=== PATIENT | female | born 1990 | race Caucasian/White ===

== ENCOUNTER 2025-07-14 14:06 | Emergency (ER) | payer OTHER, SELFPAY ==
[2025-07-14 14:18] VITALS: BP 111/58; PULSE 83; RESP 18; TEMP 36.4; O2SAT 100
--- NOTE | 2025-07-14 14:32 | ED.HA ---
HPI - Headache General Chief Complaint: Headache Stated Complaint: Head Pain Time Seen by Provider: 07/14/25 14:10 Source: patient Mode of arrival: ambulatory Limitations: no limitations History of Present Illness HPI Narrative: patient is a 35-year-old female who presents with headache has started at 11:30 a.m. this morning. Patient has not taken anything for symptoms. Patient states the worst headache she has ever had. States she is having left eye vision changes and right-sided headache. Denies any numbness, tingling or weakness. Patient states when she was she was diagnosed with vestibular migraines and this was seen neurologist next week. Patient did not call neurologist or PCP today. Related Data Home Medications ?Medication ?Instructions ?Recorded ?Confirmed ?Last Taken ?Type No Home Medications 07/14/25 07/14/25 Unknown History Allergies Allergy/AdvReac Type Severity Reaction Status Date / Time Sulfa (Sulfonamide AdvReac Intermediate Nausea and Verified 07/14/25 14:30 Antibiotics) Vomiting Review of Systems Review of Systems: All systems reviewed & are unremarkable except as noted in HPI and below Constitutional: Constitutional: Denies body ache(s), Denies chills, Denies fatigue, Denies fever(s), Reports headache(s), Denies malaise and Denies weakness Eyes: Eyes: Reports blurry vision, Denies irritation and Denies loss of vision ENT: Denies otalgia, Reports headache(s), Denies nasal discharge, Denies sinus pain and Denies sore throat Cardiovascular: Cardiovascular: Denies chest pain, Denies irregular heart rhythm and Denies dyspnea Respiratory: Respiratory: Denies dyspnea Gastrointestinal: Gastrointestinal: Denies abdominal pain, Denies melena, Denies hematochezia, Denies diarrhea, Denies nausea and Denies vomiting Musculoskeletal: Musculoskeletal: Denies back pain, Denies myalgias and Denies arthralgias Integumentary/Breasts: Skin/Breast: Denies pruritus and Denies rash Neurologic: Reports headache(s), Denies loss of vision and Denies weakness Psychiatric: Psychiatric: Reports no additional psychiatric complaints Endocrine: Endocrine: Denies fatigue PMFSH Comments At time of signature, agree with nursing past medical, surgical, social and family history. There is no relevant family history pertinent to the presenting complaint. Exam Const: General: cooperative, healthy appearing, comfortable, no acute distress and well nourished Nutritional Appearance: well nourished Orientation/consciousness: patient oriented x3 Limitations: no limitations HENMT: Head: normal to inspection, normocephalic and atraumatic Ears: hearing grossly normal bilaterally and external ears normal Face/Nose/Sinus: Normal external nose present, normal facial exam and face symmetric Face and sinus: normal facial exam and face symmetric Mouth: Yes lip normal Eyes: General: appearance normal, both eyes and all related structures Alignment and Position: alignment normal and position normal Periorbital: periorbital findings normal Eyelids: eyelids normal Pupils: Equal, round and reactive pupils present EOM: EOMs intact bilaterally Neck: Neck: normal visual inspection, full ROM and supple Chest: Chest palpation & inspection: normal inspection of the chest Resp: Effort & Inspection: normal respiratory effort and able to speak in complete sentences Auscultation: clear to auscultation bilaterally Cardio: Rate: regular rate Rhythm: regular rhythm Heart sounds: S1 normal heart sound present and S2 normal heart sound present GI: Inspection: normal to inspection Skin: General skin exam: normal color and no rashes or lesions noted Neuro: General: patient oriented x3 and moves all extremities Cranial nerves: Yes Equal, round and reactive pupils present Cognition (Neuro): normal cognition Speech: normal speech Gait exam (Neuro): Normal gait present Motor exam (neuro): 5/5 motor strength present throughout Sensory Exam: normal sensation Extrem: General: normal to inspection, full ROM and no edema Psych: Appearance: grossly normal and well kempt Mental Status: mental status grossly normal Speech and movement: Normal speech and movement present Affect: normal affect Attitude: cooperative Thought process: Normal thought process present Course Course Emergency Course: Patient being transferred to [facility] for further evaluation and treatment. Patient needs advanced imaging, labs and potentially a migraine cocktail. Portions of this record may have been created with voice recognition software Level of Care: Express Care Visit Vital Signs Vital signs: Vital Signs Temperature 36.4 C 07/14/25 14:18 Pulse Rate 83 07/14/25 14:18 Respiratory Rate 18 07/14/25 14:18 Blood Pressure 111/58 L 07/14/25 14:18 Pulse Oximetry 100 07/14/25 14:18 Oxygen Delivery Room Air 07/14/25 14:18 Temperature 36.4 C 07/14/25 14:18 Pulse Rate 83 07/14/25 14:18 Respiratory Rate 18 07/14/25 14:18 Blood Pressure 111/58 L 07/14/25 14:18 Pulse Oximetry 100 07/14/25 14:18 Oxygen Delivery Room Air 07/14/25 14:18 Reviewed Transfer Transfered to: [facility] Transportation: Other ( Private auto) Transfer rationale: Patient being transferred to [facility] for further evaluation and treatment. Patient needs advanced imaging, labs and potentially a migraine cocktail. Accepting physician: Valerie VILLANUEVA - Headache MDM Narrative Medical decision making narrative: Patient being transferred to [facility] for further evaluation and treatment. Patient needs advanced imaging, labs and potentially a migraine cocktail. Differential Diagnosis Differential diagnosis: Likely migraine, tension headache, subarachnoid hemorrhage and headache Discharge Plan Discharge Clinical Impression: Headache, Alteration in vision Patient Disposition: Acute Care Hospital Condition: Stable Patient Language: Persian Prescriptions: No Action No Home Medications Follow-up/Referrals: Aleks,KATHY Beatty Jr. [Primary Care Provider, Unknown]
--- OUTSIDE RECORDS SUMMARY | 2025-07-14 17:13 | XMS_ITS | Encounter Summary ---
Author Organization [facility] Healthcare Address [address] [place] [address] Care Team Providers Care Dial Painter Name Role Phone KATHY Fink Jr., Rogerio Wiley Primary Care Provide r Landon Julio MD Unavailable [phone] Reason for Visit * Reason Comments Headache Encounter Details Date Type Department Care Team (Late st Contact Info) Description 07/14/2025 5:13 PM [facility] - 07/14/2025 7:06 PM [facility] Emergency [facility] Emergency Department [address] [place] [address] Nonintractable episodic headache, unspecified headache type (Primary Dx) Discharge Disposition: Discharge to home or self care Social History Tobacco Use Types Packs/Day Years Used Date Smoking Tobacco: Never Smokeless Tobacco: Never Alcohol Use Standard Drinks/Week Comments Never 0 (1 standard drink = 0.6 oz pur e alcohol) AUDIT-C Answer Date Recorded Frequency of Alcohol Consumption Never 12/24/2018 Average Number of Drinks Not on file 019 Frequency of Binge Drinking Not on file 11/27 PHQ-2 Answer Date Recorded PHQ-2 Total Score (If total score is 3 or more points, staff should administer the PHQ-9) 0 11/16/2022 [place] Depression Scale Answer Date Recorded [place] Depression Scale Total 0 12/01/2019 The thought of harming myself has occurred to me . Never 12/01/2019 Personal Safety Answer Date Recorded Have you ever been in or are you currently in a harmful physical or emotional relationship or is someone making you feel afraid or unsafe? Denies 07/14/2025 Comments Unknown Sex and Gender Information Value Date Recorded Sex Assigned at Not on file Legal Sex Female 9:17 PM [facility] Gender Identity Not on file Sexual Orientation Not on file documented as of this encounter Last Filed Vital Signs Vital Sign Reading Time Taken Comments Blood Pressure 103/88 07/14/2025 6:40 PM [facility] Pulse 80 07/14/2025 6:40 PM [facility] Temperature 36.1 C (97 F) 07/14/2025 3:18 PM [facility] Respiratory Rate 18 07/14/2025 6:40 PM [facility] Oxygen Saturation 98% 07/14/2025 6:40 PM [facility] Inhaled Oxygen Concentration - - Weight 65.1 kg (143 lb 8.3 oz) 07/14/2025 3:18 P M [facility] Height 162.6 cm (5' 4) 07/14/2025 3:18 PM [facility] Body Mass Index 24.64 07/14/2025 3:18 PM [facility] documented in this encounter Functional Status * Question Answer Date of Assessment Author MAP (mmHg) 96 07/14/2025 6:40 PM [facility] Tessa Gamez RN * Question Answer Date of Assessment Author Is the patient being treated today because it is known or suspected that they prepared, started, or tried to end their life? No 07/14/2025 3:16 PM [facility] Christina White RN * Question Answer Date of Assessment Author 1. In the past month, have y ou wished you were or that you could go to sleep and not wake up? No 07/14/2025 3:16 PM [facility] Christina Gudino RN 2. In the past month, have y ou actually had any thoughts of killing yourself? No 07/14/2025 3:16 PM [facility] Christina White, R N 6. Have you ever done anythi ng, started to do anything, or prepared to do anything to end your life? No 07/14/2025 3:16 PM [facility] Christina Bryant RN * Suicide Risk Level Answer Date of Assessment Author No risk level 07/14/2025 3:16 PM [facility] Tracey White ra, RN * Fall Risk Assessment Tool - MEDFRAT Question Answer Date of Assessment Author Prior Fall Event (Autopopula ivelisse from EMR) None found 07/14/2025 3:19 PM [facility] Christina White, R N History of falling in last 3 months, including since admission 0 07/14/2025 3:19 PM [facility] Christina White R N Confusion or disorientation 0 07/14/2025 3: 19 PM Christina Rosado RN Intoxicated or sedated 0 07/14/2025 3:19 PM Christina Rosado RN Impaired gait 0 07/14/2025 3:19 PM [facility] Christina Bryant RN Mobility assist device used 0 07/14/2025 3: 19 PM Christina Rosado RN Altered elimination 0 07/14/2025 3:19 PM CS T Christina White RN Fall risk score: (1-2 low ri sk), (3-4 moderate risk), (5 or more high risk) 0 07/14/2025 3:19 PM Christina Rosado R N documented as of this encounter Discharge Instructions * Discharge Instructions* Gabriella Avila NP - 07/14/2025 6:56 PM [facility] Thank you for allowing us to take care of you. Please follow up with your primary care physician orspecialist, as soon as possible, and ideally within 7 days. Please take any new medications as prescribed. Please return to the emergency department for worsening of your symptoms or any new problemswhich may arise. It is mandatory that you follow up, as recommended, with a primary care physician or specialist, per your discharge paperwork.You have received emergency care only at your visit today, an this is nota substitute for ongoing care, further evaluation, or treatment. Therefore, follow-up as directed is not optional, but mandatory. This ensures that any incidental abnormal radiographic and laboratoryfindings are evaluated appropriately. Return immediately for any new symptoms, worsening of symptoms, or persistent symptoms. We are open19/03 and will take care of you. [facility] * Attachments The following attachments cannot be sent through Care Everywhere. * General Headache (AfterCare(R) Instructions(ER/ED)) ([place]) * Migraine Headache (AfterCare(R) Instructions(ER/ED)) ([place]) documented in this encounter Medications at Time of Discharge acetaminophen (TYLENOL) 500 mg tablet Take 1 tablet (500 mg total) by mouth every 6 (six) hours as needed for pain 30 tablet 07/14/2025 clobetasoL (TEMOVATE) 0.05 % creamIndications:Chas pic Dermatitis Apply topically 2 (two) times a day 30 g 3 06/08/2021 cyproheptadine (PERIACTIN) 4 mg tablet Take 1 tablet (4 mg total) by mouth nightly 30 tablet 2 08/29/2024 ibuprofen (ADVIL,MOTRIN) 800 mg tablet Take 1 tablet (800 mg total) by mouth 3 (three) times a day 21 tablet 07/14/2025 meclizine (ANTIVERT) 25 mg tablet Take 1 tablet (25 mg total) by mouth 3 (three) times a day as needed for dizziness 30 tablet 09/05/2024 metoclopramide (REGLAN) 10 mg tablet Take 1 tablet (10 mg total) by mouth every 6 (six) hours as needed (headache or nausea) 30 tablet 2 08/29/2024 ondansetron ODT (ZOFRAN-ODT) 4 mg disintegrating tablet Dissolve 1 tablet for mild to moderate nausea or vomiting or 2 tablets for severe nausea or vomiting oral twice a day as needed. 10 tablet 07/14/2025 oxyCODONE (ROXICODONE) 5 mg immediate release tabletIndications:Pa in Take 1 tablet (5 mg total) by mouth every 4 (four) hours as needed (headache) 20 tablet 08/29/2024 ruxolitinib (Opzelura) 1.5 % cream Apply topically 2 (two) times a day triamcinolone (KENALOG) 0.1 % ointment Apply thin layer to the external vulva BID x 7-10 days. 30 g 02/25/2024 documented as of this encounter Ordered Prescriptions Prescription Sig Dispense Quantity Refills Last Filled Start Date End Date ondansetron ODT (ZOFRAN-ODT) 4 mg disintegrating tablet Dissolve 1 tablet for mild to moderate nausea or vomiting or 2 tablets for severe nausea or vomiting oral twice a day as needed. 10 tablet 07/14/2025 acetaminophen (TYLENOL) 500 mg tablet Take 1 tablet (500 mg total) by mouth every 6 (six) hours as needed for pain 30 tablet 07/14/2025 ibuprofen (ADVIL,MOTRIN) 800 mg tablet Take 1 tablet (800 mg total) by mouth 3 (three) times a day 21 tablet 07/14/2025 documented in this encounter Discharge Disposition Disposition Code Departure Means Destination Comment s Discharge to home or self care documented in this encounter ED Notes * Gabriella Avila, NICKI - 07/14/2025 5:34 PM CST HPI Chief Complaint Patient presents with Headache CHIEF COMPLAINT: Patient presents with: Headache HPI 5:37 PM Bel Kaiser is a 35 y.o. female presenting to the ED c/o a worsening headache today. She reports she has had headaches in the past, she actually has an appointment next week with a neurologist. She reports today was just different. The pain started with some visual changes in her left eye, she then noted pain in the back of her right-sided neck that moved into the right side of her head. She did present to urgent care but they felt she needed to be seen in the ER where she could geta head CT. She denies fevers or recent illness, no head injury, no vomiting however endorses nausea, no syncopal episodes, no chest pain or shortness of breath, no light-headedness or dizziness. She has no other complaints expressed at this time. History provided by patient PCP: Rogerio Fink Jr., PA PAST MEDICAL HISTORY No past medical history on file. PAST SURGICAL HISTORY Past Surgical History: No date: TONSILECTOMY, ADENOIDECTOMY, BILATERAL MYRINGOTOMY AND TUBES FAMILY HISTORY Review of patient's family history indicates: Problem: No Known Problems Relation: Father Age of Onset: (Not Specified) Problem: Breast cancer Relation: Mother Age of Onset: (Not Specified) Problem: Depression Relation: Mother Age of Onset: (Not Specified) Problem: Ovarian cancer Relation: Neg Hx Age of Onset: (Not Specified) Problem: Uterine cancer Relation: Neg Hx Age of Onset: (Not Specified) MEDICATIONS GIVEN IN THE ED Medications sodium chloride 0.9% bolus 1,000 mL (1,000 mL intravenous New Bag 07/14/25 9859) ketorolac (TORADOL) 30 mg/mL injection 15 mg (15 mg intravenous Given 07/14/25 1733) diphenhydrAMINE (BENADRYL) 50 mg/mL injection 25 mg (25 mg intravenous Given 07/14/25 173) metoclopramide (REGLAN) 5 mg/mL injection 10 mg (10 mg intravenous Given 07/14/25 173) CURRENT HOME MEDICATIONS Current Facility-Administered Medications: ?? sodium chloride 0.9% bolus 1,000 mL, 1,000 mL, intravenous, Once, Natalia Rooney PA, Last Rate: 999 mL/hr at 07/14/251731, 1,000 mL at 07/14/251731 Current Outpatient Medications: ?? clobetasoL (TEMOVATE) 0.05 % cream, Apply topically 2 (two) times a day, Disp: 30 g, Rfl: 3?? cyproheptadine (PERIACTIN) 4 mg tablet, Take 1 tablet (4 mg total) by mouth nightly, Disp: 30 tablet, Rfl: 2?? meclizine (ANTIVERT) 25 mg tablet, Take 1 tablet (25 mg total) by mouth 3 (three) times a day as needed for dizziness, Disp: 30 tablet, Rfl: 0?? metoclopramide(REGLAN) 10 mg tablet, Take 1 tablet (10 mg total) by mouth every 6 (six) hours as needed (headacheor nausea), Disp: 30 tablet, Rfl: 2?? oxyCODONE (ROXICODONE) 5 mg immediate release tablet, Take 1 tablet (5 mg total) by mouth every 4 (four) hours as needed (headache), Disp: 20 tablet, Rfl: 0?? ruxolitinib (Opzelura) 1.5 % cream, Apply topically 2 (two) times a day, Disp: , Rfl: ?? triamcinolone(KENALOG) 0.1 % ointment, Apply thin layer to the external vulva BID x 7-10 days., Disp: 30 g, Rfl:0 ALLERGIES -- Sulfa (Sulfonamide Antibiotics) -- Vomiting -- Codeine SOCIAL HISTORY Social History Tobacco Use Smoking status: Never Smokeless tobacco: Never Substance and Sexual Activity Drug use: Never Sexual activity: Yes Partners: Male control/protection: I.U.D. Comment: discuss paragard iud Alcohol Use: Not At Risk (12/24/2018) AUDIT-C Frequency of Alcohol Consumption: Never Average Number of Drinks: Not on file Frequency of Binge Drinking: Not on file PHYSICAL EXAM TRIAGE VITAL SIGNS: ED Triage Vitals [07/14/25 1518] Temp: 36.1 ??C (97 ??F) Pulse: 70 Resp: 18 BP: 114/66 SpO2: 98 % Temp src: Temporal Heart Rate Source: n/a Patient Position: n/a BP Location: n/a FiO2 (%): n/a Height: 1.626 m (5' 4) Height Method: Stated Weight: 65.1 kg (143 lb 8.3 oz) Weight Method: Standing scale RADIOLOGY CT Head WO Contrast Result Date: 07/14/2025 Narrative: EXAMINATION: CT HEAD WO CONTRAST HISTORY: Headache, sudden, severe TECHNIQUE: CT of the head was performed with images acquired from skull base to vertex without intravenous contrast. COMPARISON: None Available. FINDINGS: There is no acute intracranial hemorrhage. Ventricles are of normal size and morphology. No mass effect or midline shift is present. No acute infarction identified. Saenz-white matter is unremarkable. The visualized portions of the orbits are normal. The visualized portions of the paranasal sinuses and mastoid air cells are clear. No fractures are identified. Impression: No acute intracranial process. Electronically signed by: MD Bel Guardado, a 35 y.o. female presents to the ED Chief Complaint Patient presents with Headache Triage nursing note reviewed and confirmed PMH: No past medical history on file. Patient History: No past medical history on file. Past Surgical History: Procedure Laterality Date TONSILECTOMY, ADENOIDECTOMY, BILATERAL MYRINGOTOMY AND TUBES Family History Problem Relation Age of Onset No Known Problems Father Breast cancer Mother Depression Mother Ovarian cancer Neg Hx Uterine cancer Neg Hx Social History Tobacco Use Smoking status: Never Smokeless tobacco: Never Substance and Sexual Activity Drug use: Never Sexual activity: Yes Partners: Male control/protection: I.U.D. Comment: discuss paragard iud Alcohol Use: Not At Risk (12/24/2018) AUDIT-C Frequency of Alcohol Consumption: Never Average Number of Drinks: Not on file Frequency of Binge Drinking: Not on file Review of Systems Review of Systems Constitutional: Negative for activity change, chills and fever. Eyes: Positive for visual disturbance (resolved). Negative for photophobia, pain, discharge, redness and itching. Respiratory: Negative for cough, chest tightness and shortness of breath. Cardiovascular: Negative for chest pain and palpitations. Gastrointestinal: Positive for nausea. Negative for abdominal pain, diarrhea and vomiting. Genitourinary: Negative for dysuria and hematuria. Musculoskeletal: Negative for myalgias, neck pain and neck stiffness. Skin: Negative for color change and rash. Neurological: Positive for headaches. Negative for dizziness, tremors, seizures, syncope, facial asymmetry, speech difficulty, weakness, light-headedness and numbness. All other systems reviewed and are negative. Physical Exam ED Triage Vitals [07/14/25 1518] Temp Pulse Resp BP SpO2 36.1 ??C (97 ??F) 70 18 114/66 98 % Temp src Heart Rate Source Patient Position BP Location FiO2 (%) Temporal -- -- -- -- Height Height Method Weight Weight Method 1.626 m (5' 4) Stated 65.1 kg (143 lb 8.3 oz) Standing scale Physical Exam Vitals and nursing note reviewed. Constitutional: Appearance: She is well-developed. HENT: Head: Normocephalic and atraumatic. Nose: Nose normal. Mouth/Throat: Mouth: Mucous membranes are moist. Pharynx: Oropharynx is clear. Eyes: Extraocular Movements: Extraocular movements intact. Conjunctiva/sclera: Conjunctivae normal. Pupils: Pupils are equal, round, and reactive to light. Cardiovascular: Rate and Rhythm: Normal rate and regular rhythm. Pulses: Normal pulses. Heart sounds: Normal heart sounds. Pulmonary: Effort: Pulmonary effort is normal. Breath sounds: Normal breath sounds. Abdominal: General: Bowel sounds are normal. Palpations: Abdomen is soft. Musculoskeletal: General: Normal range of motion. Cervical back: Normal range of motion and neck supple. Skin: General: Skin is warm and dry. Capillary Refill: Capillary refill takes less than 2 seconds. Findings: No rash. Neurological: Mental Status: She is alert and oriented to person, place, and time. GCS: GCS eye subscore is 4. GCS verbal subscore is 5. GCS motor subscore is 6. Sensory: Sensation is intact. Motor: Motor function is intact. Comments: Neuro WNL. No arm weakness. No leg weakness. No arm or leg drift. 5/5 strength in BUE andBLE. No sensory deficits. Smile symmetrical. GSC 15. Speech clear Cranial Nerves: II - Visual goodwin intact III, IV, - Extraocular movement intact. Pupils equal, round, & reactive to light V/VII - Facial sensation intact and symmetric with normal strength VIII, IX, X - Hearing not tested , normal swallow and gag XI - Normal trapezius strength via shoulder shrug and head rotation XII - No tongue deviation on protrusion Procedures [facility] Labs Reviewed - No data to display CT Head WO Contrast Final Result No acute intracranial process. Electronically signed by: Long Vigil MD BP 100/86 Pulse 80 Temp 36.1 ??C (97 ??F) (Temporal) Resp 18 Ht 162.6 cm (5' 4) Wt 65.1 kg (143 lb 8.3 oz) SpO2 99% BMI 24.64 kg/m?? MDM Number of Diagnoses or Management Options Diagnosis management comments: In my medical decision making the following differential diagnoses were considered before arriving at final diagnosis and many were either ruled out or appeared unlikely: Carbon Monoxide Poisoning, CVA / TIA, Epidural / Subdural Hematoma, Meningitis, Migraine, Ehrenberg Spotted Fever Other: Sinus Headache, Subarachnoid Hemorrhage, Temporal Arteritis, Tension Headache, Viral Syndrome Amount and/or Complexity of Data Reviewed Tests in the radiology section of CPT??: reviewed Risk of Complications, Morbidity, and/or Mortality Presenting problems: moderate Diagnostic procedures: low Management options: moderate Patient Progress Patient progress: stable 6:56 PM Rechecked Bel Kaiser is resting comfortably and feeling better. I discussed the results of diagnostic studies, my clinical impression, and the plan for further treatment with the Bel Bowiemarisa. Patient agrees with plan and discharge at this time, all questions addressed. Pt is medically stable for discharge at this time. I have given Bel Kaiser instructions regarding the diagnosis, expectations, follow up, and return precautions. I explained to the patient that emergent conditions may arise and to return to the ER for new, worsening, or any persistent conditions. I've explained the importance of following up with the Primary Care Physician-(or the referral physician listed below) as instructed. The patient verbalized understanding of the discharge instructions. New Medications: New Prescriptions ACETAMINOPHEN (TYLENOL) 500 MG TABLET Take 1 tablet (500 mg total) by mouth every 6 (six) hours as needed for pain IBUPROFEN (ADVIL,MOTRIN) 800 MG TABLET Take 1 tablet (800 mg total) by mouth 3 (three) times a day ONDANSETRON ODT (ZOFRAN-ODT) 4 MG DISINTEGRATING TABLET Dissolve 1 tablet for mild to moderate nausea or vomiting or 2 tablets for severe nausea or vomiting oral twice a day as needed. I have advised the patient to follow-up with: Rogerio Fink Jr., [address] [address] Schedule an appointment as soon as possible for a visit As needed, If symptoms worsen YOUR Neurologist Go to As Scheduled DIAGNOSIS: 1. Nonintractable episodic headache, unspecified headache type Disposition: Discharged Impression: Nonintractable episodic headache, unspecified headache type All findings were discussed with patient. Pt agreeable with plan. Non toxic appearing, vitals stable. Patient stable for discharge home. Given return to ER precautions Close outpatient follow-up with a low threshold to return has been mandated , concerning symptoms have been emphasized in detail, and this patient expresses understanding Gabriella Avila NP 07/14/25 821 [facility] * Christina White RN - 07/14/2025 3:17 PM CST Pt reports headache starting at 11:30 this morning. Has hx of migraines. Slight light and noise sensitivity with nausea. Has not taken anything for headache. [facility] documented in this encounter Plan of Treatment Not on file documented as of this encounter Procedures Procedure Name Priority Date/Time Associated Diagnosis Comments CT HEAD WO CONTRAST ED 07/14/2025 3 :47 PM [facility] documented in this encounter Results * CT Head WO Contrast (07/14/2025 3:47 PM [facility]) Anatomical Region Laterality Modality Head and Neck N/A Computed Tomogra phy 07/14/2025 3:57 PM [facility] Impressions 07/14/2025 3:57 PM [facility] No acute intracranial process. Electronically signed by: Long Vigil MD Narrative 07/14/2025 3:57 PM [facility] EXAMINATION: CT HEAD WO CONTRAST HISTORY: Headache, sudden, severe TECHNIQUE: CT of the head was performed with images acquired from skull base to vertex without intravenous contrast. COMPARISON: None Available. FINDINGS: There is no acute intracranial hemorrhage. Ventricles are of normal size and morphology. No mass effect or midline shift is present. No acute infarction identified. Saenz-white matter is unremarkable. The visualized portions of the orbits are normal. The visualized portions of the paranasal sinuses and mastoid air cells are clear. No fractures are identified. Procedure Note Long Vigil MD - 07/14/2025 EXAMINATION: CT HEAD WO CONTRAST HISTORY: Headache, sudden, severe TECHNIQUE: CT of the head was performed with images acquired from skull base to vertex without intravenous contrast. COMPARISON: None Available. FINDINGS: There is no acute intracranial hemorrhage. Ventricles are of normal size and morphology. No mass effect or midline shift is present. No acute infarction identified. Saenz-white matter is unremarkable. The visualized portions of the orbits are normal. The visualized portions of the paranasal sinuses and mastoid air cells are clear. No fractures are identified. IMPRESSION: No acute intracranial process. Electronically signed by: Long Vigil MD Natalia Rooney [facility] CT PROCEDURES Final Result documented in this encounter Visit Diagnoses Diagnosis Nonintractable episodic headache, unspecified headache type- Primary documented in this encounter Administered Medications Inactive Administered Medications - up to 3 most recent administrations Medication Order MAR Action Action Date Dose Rate Site diphenhydrAMINE (BENADRYL) 50 mg/mL injection 25 mg 25 mg, intravenous, Administer over 2 Minutes, Once, On Sun07/14/25 at 1638, For 1 dose Given 07/14/2025 5:31 PM [facility] 25 mg ketorolac (TORADOL) 30 mg/mL injection 15 mg 15 mg, intravenous, Once, On Sun07/14/25 at 1638, For 1 dose, For Adult IV push, administer over 15 seconds Given 07/14/2025 5:33 PM [facility] 15 mg metoclopramide (REGLAN) 5 mg/mL injection 10 mg 10 mg, intravenous, Administer over 1 Minutes, Once, On e 07/14/25 at 1638, For 1 dose Given 07/14/2025 5:31 PM [facility] 10 mg sodium chloride 0.9% bolus 1,000 mL 1,000 mL, intravenous, at 999 mL/hr, Administer over 1 Hours, Once, On Sun07/14/25 at 1638, For 1 dose New Bag 07/14/2025 5:32 PM [facility] 1,000 mL 999 mL/hr documented in this encounter Active and Recently Administered Medications Times are shown in [facility]. Scheduled Medication Order 07/12/2025 07/13/2025 07/14/2025 diphenhydrAMINE (BENADRYL) 50 mg/mL injection 25 mg (COMPLETED) 25 mg, intravenous, Administer over 2 Minutes, Once, On Sun07/14/25 at 1638, For 1 dose 173 (Given - Provid er: Tessa Mir RN) ketorolac (TORADOL) 30 mg/mL injection 15 mg (COMPLETED) 15 mg, intravenous, Once, On e 07/14/25 at 1638, For 1 dose, For Adult IV push, administer over 15 seconds 173 (Given - Provid er: Tessa Mir RN) metoclopramide (REGLAN) 5 mg/mL injection 10 mg (COMPLETED) 10 mg, intravenous, Administer over 1 Minutes, Once, On e 07/14/25 at 1638, For 1 dose 173 (Given - Provid er: Tessa Mir RN) sodium chloride 0.9% bolus 1,000 mL (COMPLETED) 1,000 mL, intravenous, at 999 mL/hr, Administer over 1 Hours, Once, On Sun07/14/25 at 1638, For 1 dose 173 (New Bag - Prov ider: Tessa Mir RN)1832 (Stopped - Provider: Tessa iMr RN) documented in this encounter Care Teams Dial Painter Relationship Specialty Start Date End Date Rogerio Fink Jr., PA PCP - General Physician Fine Unhairer 12/18/18 Landon Julio MD [address] [place] [address] Consulting Physician Rheumatology 11/30/22 documented as of this encounter
--- OUTSIDE RECORDS SUMMARY | 2025-07-15 00:42 | XMS_ITS | Encounter Summary ---
Author Organization [facility] Facility Care Team Providers Care Construction Pit Worker Name Role Phone KATHY Fink Jr., Rogerio Wiley Primary Care Provide r Landon Julio MD Unavailable [phone] Encounter Details Date Type Department Care Team (Latest Contact Info) Description 09/11/2017 Orders Only [facility] CLINCONV ProviderDamaris MD [address] [place] [id number] Social History Tobacco Use Types Packs/Day Years Used Date Smoking Tobacco: Never Assessed Comments Unknown Sex and Gender Information Value Date Recorded Sex Assigned at Not on file Legal Sex Female 9:17 PM DIRECTOR OF PLANT OPERATIONS Gender Identity Not on file Sexual Orientation Not on file documented as of this encounter Plan of Treatment Not on file documented as of this encounter Procedures Procedure Name Priority Date/Time Associated Diagnosis Comments SCAN - LABS 09/05/2017 12:00 AM DIRECTOR OF PLANT OPERATIONS documented in this encounter Results * SCAN - LABS (09/05/2017 12:00 AM DIRECTOR OF PLANT OPERATIONS) Narrative 09/05/2017 12:00 AM DIRECTOR OF PLANT OPERATIONS Ordered by an unspecified provider. us Historical Provider Final Res ult documented in this encounter Visit Diagnoses Not on filedocumented in this encounter Care Teams Construction Pit Worker Relationship Specialty Start Date End Date Rogerio Fink Jr., PA PCP - General Physician Lead Tinner 12/18/18 Landon Julio MD [address] [place] [address] Consulting Physician Rheumatology 11/30/22 documented as of this encounter
--- OUTSIDE RECORDS SUMMARY | 2025-07-15 00:42 | XMS_ITS | Clinical Summary ---
Author Organization [facility] Address [address] [place] [address] Care Team Providers Care Sap Crm Developer Name Role Phone KATHY Fink Jr., Rogerio Wiley Primary Care Provide r Landon Julio MD Unavailable [phone] Allergies Active Allergy Reactions Criticality Noted Date Comments Codeine Sulfa (Sulfonamide Antibiotics) Vomiting High 09/27 Medications clobetasoL (TEMOVATE) 0.05 % creamIndications:A topic Dermatitis Apply topically 2 (two) times a day 30 g 3 1 Active ruxolitinib (Opzelura) 1.5 % cream Apply topically 2 (two) times a day Active triamcinolone (KENALOG) 0.1 % ointment Apply thin layer to the external vulva BID x 7-10 days. 30 g 4 Active metoclopramide (REGLAN) 10 mg tablet Take 1 tablet (10 mg total) by mouth every 6 (six) hours as needed (headache or nausea) 30 tablet 2 5 Active oxyCODONE (ROXICODONE) 5 mg immediate release tabletIndications: Pain Take 1 tablet (5 mg total) by mouth every 4 (four) hours as needed (headache) 20 tablet 5 Active cyproheptadine (PERIACTIN) 4 mg tablet Take 1 tablet (4 mg total) by mouth nightly 30 tablet 2 5 Active meclizine (ANTIVERT) 25 mg tablet Take 1 tablet (25 mg total) by mouth 3 (three) times a day as needed for dizziness 30 tablet 5 Active ibuprofen (ADVIL,MOTRIN) 800 mg tablet Take 1 tablet (800 mg total) by mouth 3 (three) times a day 21 tablet 5 Active acetaminophen (TYLENOL) 500 mg tablet Take 1 tablet (500 mg total) by mouth every 6 (six) hours as needed for pain 30 tablet 5 Active ondansetron ODT (ZOFRAN-ODT) 4 mg disintegrating tablet Dissolve 1 tablet for mild to moderate nausea or vomiting or 2 tablets for severe nausea or vomiting oral twice a day as needed. 10 tablet 5 Active Active Problems Problem Noted Date Diagnosed Date Polyarthralgia 01/11/2023 Overview (02/01/2023): 12/2022 labs: AVISE ALESHIA 1:320 (nuclear, DFS), anti-B2 glycoprotein IgG 62 US left hand/wrist (02/01/23): Grade 2 effusion in the 3rd PIP joint with moderate synovial thickening. Grade 1 power doppler in the wrist. Assessment & Plan (05/17/2023 10:14 AM CDT): Recent serologies were positive for ALESHIA 1:320 (nuclear, DFS) and anti-B2 glycoprotein 62. A left hand/wrist US revealed a grade 2 effusion in the 3rd PIP joint with moderate synovial thickening and a grade 1 power doppler in the wrist. Began 15mg meloxicam once daily after last visit and tolerating well. Left 3rd PIP joint is slightly better but right knee pain has persisted and left knee is now causing pain as well. Appreciates knee pain with deep bends/squats/stairs. Had 1 isolated incidence when knees were swollen but this was following increased activity. Nonttp of bilateral knees with negative McMurrays, no laxity on valgus/varus stress. Will obtain XRs for baseline and discussed going to PT for knee strengthening and pain reduction. If PT does not reduce/eliminate her pain we discussed obtaining a right knee MRI. She agreed with the plan and will call if PT does not help. Will have her stop meloxicam as she notes no benefit and is not interested in any additional NSAIDs. Return in 6 months, sooner if needed. Seen with Dr. Julio. Assessment & Plan (02/01/2023 5:45 PM CDT): Ms. 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 Affected joints include left wrist/hand, shoulders, R hip and R knee. Notes the shoulder pain worsened to the point that she was unable to elevate her arms but since that time pain has begun to subside and is now only present with activity. Appreciates increased pain in the morning that improves with activity and returns in the evening. Denies any LBP/stiffness. Denies preceding injury or illness prior to onset of symptoms. Tried motrin a few times without benefit and notes mild relief with Tylenol. Additional symptoms include mouth sores, dry eyes and occasional dysphagia. No contributory FH. Recent serologies were positive for ALESHIA 1:320 (nuclear, DFS) and anti-B2 glycoprotein 62. A left hand/wrist US revealed a grade 2 effusion in the 3rd PIP joint with moderate synovial thickening and a grade 1 power doppler in the wrist. Symptoms remain more suspicious for a post viral athralgia (despite lack of reported precipitating infection) with symptoms slowly improving, negative RF/normal ESR and reported morning joint pain improved with activity. Work up did not reveal any underlying autoimmune disease. We discussed a 3 month trial with meloxicam 15mg daily to see if her symptoms would be controlled/resolved and then could wean her off and monitor for return of symptoms. She was amenable to the plan. Return in 3-4 months, sooner if needed. Discussed with Dr. Julio. Assessment & Plan (01/11/2023 3:39 PM CDT): Ms. 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 Affected joints include left wrist/hand, shoulders, R hip and R knee. Notes the shoulder pain worsened to the point that she was unable to elevate her arms but since that time pain has begun to subside and is now only present with activity. Appreciates increased pain in the morning that improves with activity and returns in the evening. Denies any LBP/stiffness. Denies preceding injury or illness prior to onset of symptoms. Tried motrin a few times without benefit and notes mild relief with Tylenol. Additional symptoms include mouth sores, dry eyes and occasional dysphagia. No contributory FH. Questionable fullness of hte left 3rd PIP joint. Nonttp of the bilateral GH joints with pain on IR/ER. Right quadriceps tendon is ttp with pain on knee extension. Eczematous changes to radial/ulnar sides of fingers and right volar wrist. Symptoms are more suspicious for a post viral athralgia (despite lack of reported precipitating infection) with symptoms slowly improving and negative RF/normal ESR, although reported morning joint pain improved with activity is concerning. Will perform appropriate serologies and a left hand US to assess the etiology of symptoms. Return in [address] Julio. Anxiety 06/07/2021 Molluscum contagiosum infection 10/03/2013 Dermatitis venenata 05/01/2012 Resolved Problems Problem Noted Date Diagnosed Date Resolved Date Normal course 09/08/2020 Post-term , 40-42 weeks of gestation 09/08/19 21 04/19/2022 Term 09/08/2020 04/19/2022 Encounter for routine follow-up 12/01/2019 04/19/2022 Incomplete anatomy 05/22/2019 9 Overview (05/22/2019): 05/22/2019 Spine Repeat 4 wks Supervision of other normal , antepartum 03/18/2019 12/01/2019 Overview (09/19/2019): First Trimester: [x] Labs [x] Genetic Screenin03/25 2nd Trimester: [x] Anatomy ultrasound complete 07/02 3rd Trimester: [x] CBC, HIV, syphilis screen [x] 1hr GCT (26-28wks): [x] Tdap (27-36wks) 08/01/19 [] Rhogam (if Rh neg): [x] GBS Encounters Date Type Department Care Team Description 07/14/2025 5:13 PM EMD TEACHER - 07/14/2025 7:06 PM [facility] Emergency [facility] Emergency Department [address] [place] [id number] Nonintractable episodic headache, unspecified headache type (Primary Dx) Discharge Disposition: Discharge to home or self care from Last 3 Months Immunizations Immunization Administration Dates Next Due Hep A, Adult 09/17/2016 Influenza, Unspecified 11/16/2022(Deferred: Kadie ent Refused) Tdap 08/01/2019,12/14/2017 Surgical History Surgery Date Site/Laterality Comments TONSILECTOMY, ADENOIDECTOMY, BILATERAL MYRINGOTOMY AND TUBES Family History Medical History Relation Name Comments No Known Problems Father Breast cancer Mother Depression Mother Ovarian cancer Neg Hx Uterine cancer Neg Hx Relation Name Status Comments Father Alive Maternal Grandfather Alive Maternal Grandmother Mother Alive at age 50 Paternal Grandfather Paternal Grandmother Social History Tobacco Use Types Packs/Day Years Used Date Smoking Tobacco: Never Smokeless Tobacco: Never Tobacco Cessation:Counseling Given: Not Answered Alcohol Use Standard Drinks/Week Comments Never 0 [...] staff should administer the PHQ-9) 0 11/16/2022 Tunica Depression Scale Answer Date Recorded Tunica Depression Scale Total 0 12/01/2019 The thought [...] on file Legal Sex Female 9:17 PM EMD TEACHER Gender Identity Not on file Sexual Orientation Not on file Obstetrics History Para Term AB IAB SAB Ectopic Multiple Livin g Live Births 3 2 2 0 0 0 0 0 2 2 Date Outcome GA Total Labor Labor/2nd/3rd Weight Sex Type Anes PTL Lenore A1 A5 Name Clin 2017 Term 40w 3d 3.515 kg (7 lb 12 oz) F Vag-S pont Epidur al N Livin g Complications:None 2019 Term 40w 0d 12h 00m 4.026 kg (8 lb 14 oz) F Vag-S pont Bria Baez tte Esteban banks man [facility] Last Filed Vital Signs Vital Sign Reading Time Taken Comments Blood Pressure 103/88 07/14/2025 6:40 PM EMD TEACHER Pulse 80 07/14/2025 6:40 PM EMD TEACHER Temperature 36.1 C (97 F) 07/14/2025 3:18 PM EMD TEACHER Respiratory Rate 18 07/14/2025 6:40 PM EMD TEACHER Oxygen Saturation 98% 07/14/2025 6:40 PM EMD TEACHER Inhaled Oxygen Concentration - - Weight 65.1 kg (143 lb 8.3 oz) 07/14/2025 3:18 P M EMD TEACHER Height 162.6 cm (5' 4) 07/14/2025 3:18 PM EMD TEACHER Body Mass Index 24.64 07/14/2025 3:18 PM EMD TEACHER Plan of Treatment Health Maintenance Due Date Last Done Comments Hepatitis B Screening 12/31/2009 HPV Vaccines (1 - 3-dose SCDM series) 12/31/2018 Depression Screening 11/17/2023 11/16/2022, 09/08/2020, 09/08/2020, Additional history exists Regular Well Visit/Exam 18-64 06/07/2024 06/07/2023, 04/19/2022, 06/08/2021, Additional history exists Cervical Cancer Screening 01/13/20252023, 01/14/2024, 04/19/2022 Covid-19 Vaccine ( season) 2025 03/05/2021, 01/27/2021 Influenza Vaccine (#1) 2025 DTaP/Tdap/Td Vaccine (3 - Td or Tdap) 08/01/2029 08/01/2019, 12/14/2017 Hepatitis C Screening Completed 03/05/2019, 017 Pneumococcal vaccine <65 Aged Out No longer eligible based on patient's age to complete this topic Varicella Vaccines Discontinued Procedures Procedure Name Priority Date/Time Associated Diagnosis Comments CT HEAD WO CONTRAST ED 07/14/2025 3 :47 PM EMD TEACHER HIGH RISK HPV DNA DETECTION WITH GENOTYPING Routine 01/14/2024 3:58 PM CDT Well woman exam HEPATITIS C ANTIBODY Routine 03/05/2019 10:22 AM CDT Missed menses from Last 3 Months or Most Recently Relevant to Health Maintenance Results * CT Head WO Contrast (07/14/2025 3:47 PM EMD TEACHER) Anatomical Region Laterality Modality Head and Neck N/A Computed Tomogra phy 07/14/2025 3:57 PM EMD TEACHER Impressions 07/14/2025 3:57 PM EMD TEACHER No acute intracranial process. Electronically signed by: Long Vigil MD Narrative 07/14/2025 3:57 PM EMD TEACHER EXAMINATION: CT HEAD WO CONTRAST HISTORY: Headache, [...] Electronically signed by: Long Vigil MD Natalia CHAVEZ Alessandro CT PROCEDURES Final Result * High Risk HPV DNA Detection with Genotyping (Molecular component) (01/14/2024 3:58 PM CDT) Pathologist [facility] [place] HPV HR 16 Not Detected Not Detected [facility] Comment:Testing performed by : [facility], [address] [place]., [address] HPV HR 18 Not Detected Not Detected [facility] Comment:Testing performed by : [facility], [address] [place]., [address] HPV HR Non 16/18 Not Detected Not Detected [facility] Comment: Interpretive Data Nucleic acid amplification for detection of high-risk Human Papilloma virus (HPV) is performed by the Errol Deric 6800 HPV test. This assay specifically detects HPV-16 and HPV-18 genotypes. The following HPV genotypes are detected as high-risk HPV: HPV-31, 33, 35, ,39, 45, 51, 52, 56, 58, 59, 66, and 68. This assay has been approved by the [place] Food and Drug Administration for detection of HPV in cervical specimens collected by a physician using an endocervical brush/spatula or cervical broom and placed in the ThinPrep Pap Test PreservCyt collection containers. The performance characteristics of this test have been verified by the [facility] Molecular Infectious Disease laboratory. Correlate with separately reported cytology results, as applicable. Interpretive data last revised 23 Testing performed by: [facility], [address] [place]., [address] Endocervical 01/14/2024 3:58 PM CDT 01/14/2024 10:57 PM CDT Narrative [facility] - 01/15/2024 6:24 PM CDT Clinical history and diagnosis->screening Testing type->Screening Last menstrual period (date if known)->01/10/24 Kendra Perry MD LAB BODY FLUIDS AND STOOL S ORDERABLES Final Result [facility] [address] [facility] Department [place] [address] [facility] * Hepatitis C antibody (03/05/2019 10:22 AM CDT) Pathologist [facility] [place] Hep C Ab NONREACT NONREACTIVE [facility] Comment: Siemens CentaurXP using DEONDRE (chemiluminescent immunoassay) technology. NONREACTIVE: Antibodies to Hepatitis C not detected. This does not exclude early acute Hepatitis C infection, possibility of exposure to Hepatitis C, antibodies below detection limit, or to lack of antibody reactivity to the antigen used in this assay. EQUIVOCAL: Antibodies to Hepatitis C may or may not be present. Sample to be confirmed by real-time PCR method. REACTIVE: Antibodies to Hepatitis C detected.Sample to be confirmed by real-time PCR method. Blood specimen (specimen) 03/05/2019 10:22 AM CDT 03/05/2019 11:06 AM CDT Narrative Resulting Agency Comment CLI us Brenden Cedeno MD LAB MICROBIOLOGY - GENERAL ORDERABLES Final Result [facility] [address] [phone] from Last 3 Months or Most Recently Relevant to Health Maintenance Insurance [facility], [place] [address] [employer] P[employer] [facility] [place] [id number] Care Teams Sap Crm Developer Relationship Specialty Start Date End Date Rogerio Fink Jr., PA PCP - General Physician Sports Medicine [place] 12/18/18 Landon Julio MD [facility] [place] [address] Consulting Physician Rheumatology 11/30/22
--- OUTSIDE RECORDS SUMMARY | 2025-07-15 00:44 | XMS_ITS | Encounter Summary ---
Author Organization [facility] Facility Care Team Providers Care Corporate General Manager Name Role Phone KATHY Fink Jr., Rogerio Wiley Primary Care Provide r Landon Julio MD Unavailable [phone] Encounter Details Date Type Department Care Team (Latest Contact Info) Description 12/21/2015 Orders Only [facility] CLINCONV ProviderDamaris MD [address] [place] [address] Social History Tobacco Use Types Packs/Day Years Used Date Smoking Tobacco: Never Assessed Comments Unknown Sex and Gender Information Value Date Recorded Sex Assigned at Not on file Legal Sex Female 9:17 PM TIME BUYER Gender Identity Not on file Sexual Orientation Not on file documented as of this encounter Plan of Treatment Not on file documented as of this encounter Procedures Procedure Name Priority Date/Time Associated Diagnosis Comments SCAN - LABS 12/21/2015 12:00 AM CDT documented in this encounter Results * SCAN - LABS (12/21/2015 12:00 AM CDT) Narrative 12/21/2015 12:00 AM CDT Ordered by an unspecified provider. Historical Provider Final Res ult documented in this encounter Visit Diagnoses Not on filedocumented in this encounter Care Teams Corporate General Manager Relationship Specialty Start Date End Date Rogerio Fink Jr., PA PCP - General Physician Materials Engineering Technician 12/18/18 Landon Julio MD [address] [place] [address] Consulting Physician Rheumatology 11/30/22 documented as of this encounter
== END 2025-07-14 14:45 | disposition short-term general hospital (02) ==
PROVIDERS: Emergency Provider Nurse Practitioner Family; PCP Physician Assistant
DX: R51.9 Headache, unspecified (principal); H53.9 Unspecified visual disturbance
CPT/HCPCS: 99203; G0463